=== PATIENT | female | born 1990 | race Two or more races ===

== ENCOUNTER 2021-08-10 21:50 | Emergency (ER) | payer BC, OTHER ==
[~2021-08-10] VITALS: Ht 154.9 cm; Wt 84.8 kg
[2021-08-10 23:55] LABS: Basophils # (auto) 0 10 ^3/uL (0-0.2); Basophils % (auto) 0.4 % (0.0-2.0); Eosinophils # (auto) 0.1 10 ^3/uL (0-0.8); Eosinophils % (auto) 0.5 % (0.0-7.0); Hematocrit 39.9 % (36.0-46.0); Lymphocytes # (auto) 1.9 10 ^3/uL (0.4-5.4); Lymphocytes % (auto) 14.9 % (10.0-50.0); Mean Corpuscular Hemoglobin 31.4 pg (28.0-32.0); Mean Corpuscular Hgb Conc. 35.1 g/dL (32.0-36.0); Mean Corpuscular Volume 89.5 fL (80.0-100.0); Monocytes # (auto) 0.6 10 ^3/uL (0-1.3); Monocytes % (auto) 4.3 % (0.0-12.0); Neutrophils # (auto) 10.2 10 ^3/uL (1.6-8.6); Neutrophils % (auto) 79.9 % (37.0-80.0); Red Blood Cells 4.45 10^6/uL (4.0-5.20); Red Cell Distribution Width 12.6 % (11.8-14.3); White Blood Cell 12.8 10^3/uL (4.4-10.8)
[2021-08-11 00:15] LABS: Albumin 3.8 g/dL (3.4-5.0); Calcium 9.3 mg/dL (8.5-10.1); Magnesium 2.3 mg/dL (1.6-2.6); Potassium 3.7 mmol/L (3.5-5.1)
[2021-08-11 00:17] LABS: BUN/Creatinine Ratio 12.1
[2021-08-11 00:20] LABS: Bilirubin, Total 0.4 mg/dL (0.2-1.0); Total Protein 8.3 g/dL (6.4-8.2)
[2021-08-11 01:41] LABS: Alcohol, Urine < 3.0 mg/dL (0-10); Amphetamine Screen, Urine NEGATIVE (NEGATIVE); Barbiturate Scree,Urine NEGATIVE (NEGATIVE); Benzodiazephine Screen, Urine NEGATIVE (NEGATIVE); Cannabinoid Screen, Urine NEGATIVE (NEGATIVE); Cocaine Screen, Urine NEGATIVE (NEGATIVE); Opiate Scree,Urine NEGATIVE (NEGATIVE); Phencyclidine Screen, Urine NEGATIVE (NEGATIVE)
[2021-08-11 01:50] LABS: Urine Bacteria FEW /hpf (None Seen); Urine Blood 2+ /uL (Negative); Urine Mucus FEW (None Seen); Urine Specific Gravity 1.019 (1.001-1.035); Urine WBC 3 /hpf (0 - 5)
[2021-08-11 03:54] VITALS: BP 120/84
== END 2021-08-11 04:12 | disposition home or self-care (01) ==
LOC: ER 21:54
DX: R00.2 Palpitations (principal)
CPT/HCPCS: 36415; 80053; 80307; 81001; 83735; 84443; 85025; 93005

== ENCOUNTER 2021-10-12 12:01 | Emergency (ER) | payer BC ==
[~2021-10-12] VITALS: Ht 154.9 cm; Wt 86.2 kg
[2021-10-12 12:46] LABS: Urine Amorphous Crystal FEW /hpf (None Seen); Urine Bacteria FEW /hpf (None Seen); Urine Blood 3+ /uL (Negative); Urine Specific Gravity 1.015 (1.001-1.035); Urine WBC 64 /hpf (0 - 5); Urine WBC Clumps PRESENT /hpf (None Seen)
[2021-10-12 12:58] LABS: Basophils # (auto) 0.1 10 ^3/uL (0-0.2); Basophils % (auto) 1.2 % (0.0-2.0); Eosinophils # (auto) 0.2 10 ^3/uL (0-0.8); Eosinophils % (auto) 2.2 % (0.0-7.0); Hematocrit 36.2 % (36.0-46.0); Hemoglobin 12.6 g/dL (12.2-16.2); Lymphocytes # (auto) 2.3 10 ^3/uL (0.4-5.4); Lymphocytes % (auto) 28.2 % (10.0-50.0); Mean Corpuscular Hemoglobin 31.3 pg (28.0-32.0); Mean Corpuscular Hgb Conc. 34.7 g/dL (32.0-36.0); Mean Corpuscular Volume 90.1 fL (80.0-100.0); Monocytes # (auto) 0.5 10 ^3/uL (0-1.3); Monocytes % (auto) 5.7 % (0.0-12.0); Neutrophils # (auto) 5.1 10 ^3/uL (1.6-8.6); Neutrophils % (auto) 62.7 % (37.0-80.0); Nucleated Red Blood Cells % 0.1 %; Red Blood Cells 4.02 10^6/uL (4.0-5.20); Red Cell Distribution Width 12.7 % (11.8-14.3); White Blood Cell 8.2 10^3/uL (4.4-10.8)
[2021-10-12 13:16] LABS: Albumin 2.9 g/dL (3.4-5.0); BUN/Creatinine Ratio 11.5; Calcium 8.7 mg/dL (8.5-10.1); Potassium 3.1 mmol/L (3.5-5.1)
[2021-10-12 13:19] LABS: Bilirubin, Total 0.4 mg/dL (0.2-1.0); Total Protein 7.1 g/dL (6.4-8.2)
[2021-10-12] MEDS ORDERED: NITR-87 PO (14:53)
[2021-10-12 15:05] VITALS: BP 107/85
== END 2021-10-12 15:14 | disposition home or self-care (01) ==
LOC: ER 12:01
DX: O20.0 Threatened abortion (principal); O23.41 Unspecified infection of urinary tract in pregnancy, first trimester; Z3A.10 10 weeks gestation of pregnancy
CPT/HCPCS: 36415; 76801; 76817; 80053; 81001; 84702; 85025

== ENCOUNTER 2021-10-18 03:39 | Emergency (ER) | payer BC ==
[~2021-10-18] VITALS: Ht 154.9 cm; Wt 86.2 kg
[~2021-10-18 03:39] MED LIST: NITR-87 PO
[2021-10-18 04:40] LABS: Urine Bacteria FEW /hpf (None Seen); Urine Blood 3+ /uL (Negative); Urine Specific Gravity 1.003 (1.001-1.035); Urine WBC <1 /hpf (0 - 5)
[2021-10-18 05:09] LABS: Basophils # (auto) 0.1 10 ^3/uL (0-0.2); Basophils % (auto) 0.7 % (0.0-2.0); Eosinophils # (auto) 0.3 10 ^3/uL (0-0.8); Eosinophils % (auto) 2.5 % (0.0-7.0); Hematocrit 37.8 % (36.0-46.0); Hemoglobin 13.2 g/dL (12.2-16.2); Lymphocytes # (auto) 2.7 10 ^3/uL (0.4-5.4); Lymphocytes % (auto) 26.2 % (10.0-50.0); Mean Corpuscular Hemoglobin 31.2 pg (28.0-32.0); Mean Corpuscular Volume 89.2 fL (80.0-100.0); Monocytes # (auto) 0.7 10 ^3/uL (0-1.3); Monocytes % (auto) 6.9 % (0.0-12.0); Neutrophils # (auto) 6.5 10 ^3/uL (1.6-8.6); Neutrophils % (auto) 63.7 % (37.0-80.0); Nucleated Red Blood Cells % 0.1 %; Red Blood Cells 4.24 10^6/uL (4.0-5.20); Red Cell Distribution Width 12.6 % (11.8-14.3); White Blood Cell 10.2 10^3/uL (4.4-10.8)
[2021-10-18 05:24] LABS: Albumin 3.6 g/dL (3.4-5.0); BUN/Creatinine Ratio 11.3; Calcium 9.1 mg/dL (8.5-10.1); Potassium 3.6 mmol/L (3.5-5.1)
[2021-10-18 05:27] LABS: Bilirubin, Total 0.3 mg/dL (0.2-1.0); Total Protein 8.3 g/dL (6.4-8.2)
[2021-10-18 16:12] VITALS: BP 128/74
== END 2021-10-18 16:20 | disposition home or self-care (01) ==
LOC: ER 03:39
DX: O03.9 Complete or unspecified spontaneous abortion without complication (principal); Z3A.10 10 weeks gestation of pregnancy
CPT/HCPCS: 36415; 76801; 80053; 81001; 81025; 84702; 85025; 86850; 86900; 86901

== ENCOUNTER 2022-08-26 12:30 | Emergency (ER) | payer BC, MEDICAID ==
[~2022-08-26] VITALS: Ht 154.9 cm; Wt 83.0 kg
[2022-08-26 13:29] VITALS: BP 125/78
[2022-08-26] MEDS ORDERED: IBUP800T27 PO (13:59)
[2022-08-26] MEDS ORDERED: IBUPROFEN 800 MG TAB PO ONE (14:00)
== END 2022-08-26 14:03 | disposition home or self-care (01) ==
LOC: ER 12:30
DX: S53.402A Unspecified sprain of left elbow, initial encounter (principal); S50.12XA Contusion of left forearm, initial encounter; W10.8XXA Fall (on) (from) other stairs and steps, initial encounter; Y93.9 Activity, unspecified; Y92.89 Other specified places as the place of occurrence of the external cause; Y99.8 Other external cause status
CPT/HCPCS: 73080

== ENCOUNTER 2023-11-24 17:02 | Emergency (ER) | payer BC, MEDICAID, OTHER ==
[~2023-11-24] VITALS: Ht 154.9 cm; Wt 89.0 kg
[~2023-11-24 17:02] MED LIST changes: +IBUP-1456 PO
[2023-11-24 17:47] VITALS: BP 125/68; PULSE 94; RESP 16; O2SAT 97
[2023-11-24] MEDS ORDERED: ACET500T58 PO (21:53)
[2023-11-24] MEDS ORDERED: PRED20TA2 PO (21:53)
== END 2023-11-24 22:43 | disposition home or self-care (01) ==
LOC: ER 17:02
DX: S46.811A Strain of other muscles, fascia and tendons at shoulder and upper arm level, right arm, initial encounter (principal); E11.9 Type 2 diabetes mellitus without complications; Z86.2 Personal history of diseases of the blood and blood-forming organs and certain disorders involving the immune mechanism; Z98.890 Other specified postprocedural states; Z79.899 Other long term (current) drug therapy; X58.XXXA Exposure to other specified factors, initial encounter; Y93.89 Activity, other specified; Y92.89 Other specified places as the place of occurrence of the external cause; Y99.0 Civilian activity done for income or pay
CPT/HCPCS: 73030

== ENCOUNTER 2025-02-19 20:07 | Emergency (ER) | payer BC, MEDICAID ==
[~2025-02-19] VITALS: Ht 154.9 cm; Wt 90.9 kg
[~2025-02-19 20:07] MED LIST changes: +ACET500T58 PO
[2025-02-19 20:11] VITALS: TEMP 97.4; O2SAT 98
--- NOTE | 2025-02-19 20:48 | ED.PDOC ---
History of Present Illness HPI Comments 34-year-old with presented to the ER with a chief complaint of heavy menstrual bleeding for the past 3 days. Patient reports menses are regular and starting menstruating 10/3 but her heavy and she has been passing clots for the past 3 days. She feels lightheaded, dizzy and reports generalized weakness but denies fever, chills, nausea, vomiting, abdominal pain at this time. Denies constipation or diarrhea. Does report dyspareunia. But denies dyschezia. She has been soaking 6 pads a day for the past 3 days. Does have history of blood transfusion 2 packed RBCs 2 years back when she delivered her last, vaginal delivery. Has not seen a doctor in 2 years. Does not follow up with the PCP. Home medications: Levothyroxine, metformin Denies smoking/drug use Past medical history:type 2 diabetes mellitus on metformin, hypothyroidism on levothyroxine Attestation note: Dr. Cameron: I was the supervising attending for this ED encounter. Please see the resident's notes. I was available for questions and consultations. Differential diagnosis: Differential diagnosis includes but not limited to DU B, menorrhea, metromenorrhagia, neoplasm, coagulopathy, , trauma, miscarriage, placenta previa, placental abruption, MDM: MDM: patient presented with the above HPI.--heavy vaginal bleed during men strual cycle----workup was initiated. patient was found with the above mentioned diagnosis. the following medications were ordered: please refer to order lists of meds and tests obtained by myself Dr. Cameron. Patient ED course and VS have been stabilized. Patient has been reassessed in the ED and remained in a stable condition. Pertinent incidental findings were discussed with the patient and/or family. Patient/family voices understanding and is agreeable with plan. Patient has been observed in the ED adequate length of time to insure improvement/stability. Escalation of care considered: Consideration of escalation to observation or admission Patient was given fluids and repeat H and H was obtained which remained stable. Ultrasound was obtained. Patient was DISCHARGED home in a stable condition. All the reports of any imaging studies that were ordered by myself were reviewed by myself. Chief Complaint: Vaginal Bleed Time Seen by MD: 20:26 Primary Care Provider: UNKNOWN Reviewed Notes: Nurses Notes, Allergies Allergies: Coded Allergies: No Known Drug Allergy (Verified Allergy, Unknown, 10/12/21) Home Meds Active Scripts Acetaminophen (Acetaminophen) 500 Mg Tab, 500 MG PO Q4HPRN, #30 TAB 0 Refills Prov:QUYNH TAVAREZ 11/24/23 Ibuprofen (Ibuprofen) 800 Mg Tab, 1 TAB PO TID, #30 TAB Prov:SHERLYN CONTEH 08/26/22 Nitrofurantoin Monohydrate Mac (Macrobid) 100 Mg Cap, 100 MG PO BID for 5 Days, #10 CAP Prov:IOANA GALINDO MD 10/12/21 Information Source: Patient Mode of Arrival: Ambulatory Severity: Mild Timing: Days Duration: Since onset Past Medical History PAST MEDICAL HISTORY: Anemia, DM, Thyroid Past Medical History (Other): Diabetes hypothyroidism 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 Family History Family History: Unknown Social History Smoker: Non-Smoker Alcohol: Denies ETOH Use Drugs: Denies Drug Use Lives In: Home Constitutional: reports: weakness EENTM: denies: blurred vision, double vision, ear bleeding, ear discharge, ear drainage, ear pain, ear ringing, eye pain, eye redness, hearing loss, mouth pain, mouth swelling, nasal discharge, nose bleeding, nose congestion, nose pain, photophobia, tearing, throat pain, throat swelling, voice changes, others Respiratory: denies: cough, hemoptysis, orthopnea, SOB at rest, shortness of breath, SOB with excertion, stridor, wheezing, others Cardiovascular: denies: chest pain, dizzy spells, diaphoresis, Dyspnea on exertion, edema, irregular heart beat, left arm pain, lightheadedness, palpitations, PND, syncope, others Gastrointestinal: denies: abdomen distended, abdominal pain, blood streaked bowels, constipated, diarrhea, dysphagia, difficulty swallowing, hematemesis, melena, nausea, poor appetite, poor fluid intake, rectal bleeding, rectal pain, vomiting, others Genitourinary: reports: abnormal vagina bleeding, dyspareunia Neurological: denies: dizziness, fainting, headache, left sided numbness, left sided weakness, numbness, paresthesia, pre-existing deficit, right sided numbness, right sided weakness, seizure, speech problems, tingling, tremors, weakness, others Musculoskeletal: denies: back pain, gout, joint pain, joint swelling, muscle pain, muscle stiffness, neck pain, others Allergic/Immunocompromised: denies: Difficulty Healing, Frequent Infections, Hives, Itching, others Hematologic/Lymphatic: denies: anemia, blood clots, easy bleeding, easy bruising, swollen glands, others Endocrine: denies: excessive hunger, excessive sweating, excessive thirst, excessive urination, flushing, intolerance to cold, intolerance to heat, unexplained weight gain, unexplained weight loss, others Psychiatric: denies: anxiety, bipolar disorder, depression, hopeless, panic dis order, schizophrenia, sleepless, suicidal, others Physical Exam General Appearance: None, Obese HEENT: Cornea (L), Cornea (R) Neck: NOT DONE Respiratory: No Accessory Muscle Use, No Respiratory Distress, Normal Breath Sounds Cardiovascular: No Edema, No Murmur, Normal Peripheral Pulses, Regular Rate/Rhythm Breast Exam: Deferred Gastrointestinal: Non Tender, Normal Bowel Sounds Genitalia: Deferred Pelvic: Deferred Rectal: Rectal Exam not done Extremities: Non-tender, No pedal edema Neurologic: NOT DONE Cerebellar Function: NOT DONE Reflexes: NOT DONE Skin: Warm Lymphatic: NOT DONE Was a procedure done? Was a procedure done?: No Differential Dx Considerations may include: Uterine fibroid, uterine polyp, adenoma, PCOS, ovulatory dysfunction X-Ray, Labs, Meds, VS Vital Signs Date Time Temp Pulse Resp B/P (MAP) Pulse Ox O2 Delivery O2 Flow Rate FiO2 02/20/25 00:44 Room Air* 0 21 02/20/25 00:40 83 16 120/70 (87) 02/19/25 20:11 97.4 100 16 112/77 98 97.4 Lab Test 02/19/25 23:46 02/19/25 22:33 02/19/25 20:40 Range/Units White Blood Count 8.2 9.0 4.4-10.8 10^3/uL Red Blood Count 4.24 4.49 4.0-5.20 10^6/uL Hemoglobin 12.8 13.4 12.2-16.2 g/dL Hematocrit 37.7 40.0 36.0-46.0 % Mean Corpuscular Volume 88.9 89.1 80.0-100.0 fL Mean Corpuscular Hemoglobin 30.1 29.9 28.0-32.0 pg Mean Corpuscular Hemoglobin Concent 33.9 33.6 32.0-36.0 g/dL Red Cell Distribution Width 13.4 13.3 11.8-14.3 % Platelet Count 234 243 140-450 10^3/uL Mean Platelet Volume 10.2 10.4 6.9-10.8 fL Neutrophils (%) (Auto) 54.9 54.8 37.0-80.0 % Lymphocytes (%) (Auto) 33.9 35.4 10.0-50.0 % Monocytes (%) (Auto) 6.6 5.3 0.0-12.0 % Eosinophils (%) (Auto) 4.0 3.7 0.0-7.0 % Basophils (%) (Auto) 0.6 0.8 0.0-2.0 % Neutrophils # (Auto) 4.5 4.9 1.6-8.6 10 ^3/uL Lymphocytes # (Auto) 2.8 3.2 0.4-5.4 10 ^3/uL Monocytes # (Auto) 0.5 0.5 0-1.3 10 ^3/uL Eosinophils # (Auto) 0.3 0.3 0-0.8 10 ^3/uL Basophils # (Auto) 0 0.1 0-0.2 10 ^3/uL Nucleated Red Blood Cells 0.0 0.1 % Urine Color Light-yellow Yellow Urine Clarity Clear Clear Urine pH 5.5 5.0-9.0 Urine Specific [place] 1.013 1.001-1.035 Urine Protein Negative Negative Urine Ketones Negative Negative Urine Blood 3+ H Negative /uL Urine Nitrite Negative Negative Urine Bilirubin Negative Negative Urine Urobilinogen Normal Negative mg/dL Urine Leukocyte Esterase Negative Negative /uL Urine RBC 481 0 - 4 /hpf Urine Microscopic WBC < 1 0-5 /HPF Urine Squamous Epithelial Cells Few <5 /hpf Urine Bacteria None seen None Seen /hpf Urine Mucus Few None Seen Urine Glucose Normal Normal mg/dL Urine Test Negative Negative Sodium Level 139 136-145 mmol/L Potassium Level 3.9 3.5-5.1 mmol/L Chloride Level 102 98-107 mmol/L Carbon Dioxide Level 28 20-31 mmol/L Anion Gap 9 5-15 Blood Urea Nitrogen 6 L 9-23 mg/dL Creatinine 0.87 0.550-1.02 mg/dL Glomerular Filtration Rate Calc 90 >90 mL/min BUN/Creatinine Ratio 6.9 L 10.0-20.0 Serum Glucose 203 H 74-106 mg/dL Calcium Level 9.1 8.7-10.4 mg/dL Total Bilirubin 0.3 0.2-1.0 mg/dL Aspartate Amino Transferase (AST) 41 H 13-40 U/L Alanine Aminotransferase (ALT) 45 H 7-40 U/L Alkaline Phosphatase 127 H 46-116 U/L Total Protein 8.3 H 5.7-8.2 g/dL Albumin 4.4 3.2-4.8 g/dL Current Medications Medications (Trade) Dose Ordered Sig/Federico Route Start Time Stop Time Status Last Admin Sodium Chloride 1,000 ml @ 1,000 mls/hr Q1H ONCE IV 02/19/25 20:45 02/19/25 21:44 DC 02/19/25 23:03 X-Ray, Labs, Meds, VS Comment CBC within normal limits, hemoglobin 13 per dL CMP shows mild transaminitis likely steatosis Images Reviewed?: Images reviewed and evaluated by me Time of 1ST Reevaluation: 01:00 Reevaluation 1ST: Improved Patient Education/Counseling: Diagnosis, Treatment, Prognosis, Need For Follow Up Family Education/Counseling: No Family Present SEPSIS Sepsis Screen Date sepsis recognized/suspect: Feb 19, 2025 Time Sepsis recognized/suspect: 2013 Recent Procedure: No On Antibiotic Therapy: No Respiratory Rate >20: No Heart Rate >90: No Temp<36 C (96.8 F) or >38.3 C: No SBP <90 or MAP <65 mmHG: No New Acute Mental Status Change: No Is the patient on CPAP, BIPAP,: No Physician Orders Sprinkler Worker (02/19/25 ) Pelvic (02/19/25 20:34) Transvaginal Us Non Ob (02/19/25 22:01) Vital Signs Date Time Temp Pulse Resp B/P (MAP) Pulse Ox O2 Delivery O2 Flow Rate FiO2 02/20/25 00:44 Room Air* 0 21 02/20/25 00:40 83 16 120/70 (87) 02/19/25 20:11 97.4 100 16 112/77 98 97.4 Laboratory Tests Test 02/19/25 20:40 02/19/25 23:46 White Blood Count 9.0 10^3/uL (4.4-10.8) 8.2 10^3/uL (4.4-10.8) Medications Medications Dose Ordered Sig/Federico Route Start Time Stop Time Status Last Admin Dose Admin Sodium Chloride 1,000 ml @ 1,000 mls/hr Q1H ONCE IV 02/19/25 20:45 02/19/25 21:44 DC 02/19/25 23:03 Departure 1 Departure Time of Disposition: 00:36 Impression: Primary Impression: Heavy menstrual period Additional Impression: Ovarian mass Disposition: HOME / SELF CARE / HOMELESS Condition: Stable Additional Instructions: Additional instructions: Please read all instructions provided in this packet carefully. You MUST follow-up with your primary care/family doctor in 1 to 2 days. If you are unable to see your primary care/family doctor, please return to our emergency room for re-assessment and re-evaluation in 1 to 2 days. Return to the emergency room here in our facility or to the nearest ER [facility] if your symptoms change or worsen. CONSULTATIONS: you MUST Follow-up for consultation as soon as possible with: Dr.-OB Fontaine doctor in 1-2 days. Please call for appointment. You MUST call the consultants office yourself to make an appointment. You may need to arrange that through your insurance and/or your primary/family doctor. If you are unable to see the managed services consultant in 1 to 2 days, you must return to our emergency room (or any other ER of your choice) for re-assessment and re- evaluation. Adequate fluid hydration. Although you have been discharged from the Emergency Department, this does not mean that you have a "clean bill of health". No definitive diagnosis for your symptoms has been made today. It is possible that you are in the process of developing a serious illness. This is why you must return to the ED without fail if any new or worsening symptoms develop. Take iron supplements daily. Repeat CBC in 48-72 hours. Below is a copy of your radiological report for follow up: [address] [address] Ph: [phone] DIAGNOSTIC IMAGING Diagnostic Imaging Report : [id number] Signed PATIENT: DILAN GARCIA ACCT: [id number] UNIT: [id number] : 1990 LOC: ER ROOM / BED: / AGE / SEX: 34 / F ADM STATUS: REG ER SERVICE 33 ORDERING PHYSICIAN: CESAR CAMERON DO PROCEDURE(s): PELUS - PELVIC REASON: vag bleed ORDER NUMBER(s): [id number], ACCESSION NUMBER(s): [id number] INDICATION: vag bleed TECHNIQUE: Multiple real-time grayscale transabdominal and transvaginal sonographic images along with color and duplex Doppler of the uterus and ovaries were obtained. COMPARISON: Ob ultrasound 10/12/2021 FINDINGS: The uterus measures 8.9 x 5.4 x 4.2 cm. The endometrial stripe measures 3 mm. Multiple prominent complex nabothian cysts versus tortuous vessels with slow internal flow. Right ovary measures 3.7 x 2 x 2.9 cm with normal Doppler color flow. A mixed solid/cystic appearing lesion measures 3.3 x 2.2 x 2.1 cm, with an eccentric hyperechoic internal focus and lace-like attenuation within the cystic portion. The left ovary is not visualized and reportedly surgically absent. No visualized ascites. IMPRESSION: 1. Complex nabothian cysts versus slow flow vessels within/along the cervix. The endometrium is unremarkable. 2. Slightly increased size of a complex right ovarian lesion measuring up to 3.3 cm, sonographic features suggesting a hemorrhagic cyst with retractile clot versus fat containing lesion such as a dermoid. Overall low suspicion despite slow interval growth from 2021; outpatient gynecologic referral may be considered. Outpatient pelvic CT May offer improved characterization of the possible fat containing component. 3. Nonvisualized, reportedly surgically absent left ovary. ATED BY: JASSON OLMEDO MD DICTATED DATE/TIME: 02/19/252229 SIGNED BY: JASSON OLMEDO MD SIGNED DATE/TIME: 02/19/252229 CC: Discharged With: Self Critical Care Note Critical Care Time?: No Stability Stability form required: No Heart Score Heart Score: Heart Score Response (Comments) Value History N/A 0 EKG N/A 0 Age N/A 0 Risk Factors N/A 0 Troponin N/A 0 Total 0 HAYLEE COULTER RESIDENT Feb 19, 2025 20:48 CESAR CAMERON DO Feb 20, 2025 00:39
[2025-02-19 21:16] LABS: Hematocrit 40.0 % (36.0-46.0); Hemoglobin 13.4 g/dL (12.2-16.2); Mean Corpuscular Hemoglobin 29.9 pg (28.0-32.0); Mean Corpuscular Volume 89.1 fL (80.0-100.0); Nucleated Red Blood Cells % 0.1 %
[2025-02-19 21:34] LABS: Albumin 4.4 g/dL (3.2-4.8); Anion Gap 9 (5-15); BUN/Creatinine Ratio 6.9 (10.0-20.0); Calcium 9.1 mg/dL (8.7-10.4); Carbon Dioxide 28 mmol/L (20-31); Chloride 102 mmol/L (98-107); Potassium 3.9 mmol/L (3.5-5.1); Sodium 139 mmol/L (136-145)
[2025-02-19 21:37] LABS: Alanine Aminotransferase 45 U/L (7-40); Alkaline Phosphatase 127 U/L (46-116); Bilirubin, Total 0.3 mg/dL (0.2-1.0); Blood Urea Nitrogen 6 mg/dL (9-23); Glucose 203 mg/dL (74-106); Total Protein 8.3 g/dL (5.7-8.2)
--- NOTE | 2025-02-19 22:33 | DVH ---
INDICATION: vag bleed TECHNIQUE: Multiple real-time grayscale transabdominal and transvaginal sonographic images along with color and duplex Doppler of the uterus and ovaries were obtained. COMPARISON: Ob ultrasound 10/12/2021 FINDINGS: The uterus measures 8.9 x 5.4 x 4.2 cm. The endometrial stripe measures 3 mm. Multiple prominent comp beverley nabothian cysts versus tortuous vessels with slow internal flow. Right ovary measures 3.7 x 2 x 2.9 cm with normal Doppler color flow. A mixed solid/cystic appearing lesion measures 3.3 x 2.2 x 2.1 cm, with an eccentric hyperechoic internal focus and lace-like attenu ation within the cystic portion. The left ovary is not visualized and reportedly surgically absent. No visualized ascites. IMPRESSION: 1. Complex nabothian cysts versus slow flow vessels within/along the cervix. The endometrium is unrem arkable. 2. Slightly increased size of a complex right ovarian lesion measuring up to 3.3 cm, sonographic feat ures suggesting a hemorrhagic cyst with retractile clot versus fat containing lesion such as a dermoi d. Overall low suspicion despite slow interval growth from 2021; outpatient gynecologic referral may be considered. Outpatient pelvic CT May offer improved characterization of the possible fat containi ng component. 3. Nonvisualized, reportedly surgically absent left ovary.
[2025-02-19] MEDS: SODIUM CHLORIDE 0.9% 1,000 ML IV ONE (23:03)
[2025-02-19 23:05] LABS: Urine Protein, UAD Negative (Negative)
[2025-02-20 00:13] LABS: Hematocrit 37.7 % (36.0-46.0); Hemoglobin 12.8 g/dL (12.2-16.2); Mean Corpuscular Hemoglobin 30.1 pg (28.0-32.0); Mean Corpuscular Volume 88.9 fL (80.0-100.0); Nucleated Red Blood Cells % 0.0 %
[2025-02-20 00:40] VITALS: BP 120/70; PULSE 83; RESP 16
== END 2025-02-20 01:15 | disposition home or self-care (01) ==
LOC: ER 20:07
DX: N92.0 Excessive and frequent menstruation with regular cycle (principal); N83.9 Noninflammatory disorder of ovary, fallopian tube and broad ligament, unspecified; E11.9 Type 2 diabetes mellitus without complications; E03.9 Hypothyroidism, unspecified; Z79.899 Other long term (current) drug therapy; Z90.721 Acquired absence of ovaries, unilateral; Z79.84 Long term (current) use of oral hypoglycemic drugs; Z79.1 Long term (current) use of non-steroidal anti-inflammatories (NSAID)
CPT/HCPCS: 36415; 76830; 76856; 80053; 81001; 81025; 85025; 86850; 86900; 86901; 96360; 99284; J7030